=== PATIENT | male | born 1985 | race Caucasian/White ===

== ENCOUNTER → 2017-04-17 | Outpatient (CLI) | payer BC ==
[2017-04-17 09:09] LABS: BASOPHILS # (AUTO) 0.1 X10^3/uL (0.0-0.1); BASOPHILS % (AUTO) 1.1 % (0.2-1.0); EOSINOPHILS # (AUTO) 0.2 x10^3/uL (0.0-0.2); EOSINOPHILS % (AUTO) 2.3 % (0.9-2.9); HEMATOCRIT 42.5 % (42.0-54.0); HEMOGLOBIN 14.7 g/dL (13.5-18.0); LYMPHOCYTES # (AUTO) 2.2 X10^3/uL (1.3-2.9); LYMPHOCYTES % (AUTO) 30.7 % (21.0-51.0); MEAN CORPUSCULAR HEMOGLOBIN 30.5 pg (27.0-34.0); MEAN CORPUSCULAR HGB CONC 34.7 g/dL (33.0-35.0); MEAN CORPUSCULAR VOLUME 88.1 fL (80.0-100.0); MEAN PLATELET VOLUME 8.8 fL (7.4-11.0); MONOCYTES # (AUTO) 0.5 x10^3/uL (0.3-0.8); MONOCYTES % (AUTO) 6.4 % (0.0-13.0); NEUTROPHILS # (AUTO) 4.3 x10^3/uL (2.2-4.8); NEUTROPHILS % (AUTO) 59.5 % (42.0-75.0); PLATELET COUNT 297 X10^3/uL (150.0-450.0); RED BLOOD COUNT 4.82 X10^6/uL (4.7-6.0); RED CELL DISTRIBUTION WIDTH 12.8 % (11.6-16.5); WHITE BLOOD COUNT 7.2 X10^3/uL (3.6-10.0)
[2017-04-17 09:28] LABS: ALANINE AMINOTRANSFERASE 26 Units/L (12-78); ALBUMIN 3.7 g/dL (3.4-5.0); ALKALINE PHOSPHATASE 66 Units/L (46-116); ASPARTATE AMINO TRANSFERASE 29 Units/L (15-37); BLOOD UREA NITROGEN 28 mg/dL (7-18); CALCIUM 9.3 mg/dL (8.5-10.1); CARBON DIOXIDE 24.2 mmol/L (21-32); CHLORIDE 105 mmol/L (98-107); CHOL/HDL RATIO 7.8 (0.0-5.0); CHOLESTEROL 296 mg/dL (0-200); CREATININE 1.99 mg/dL (0.70-1.30); HDL CHOLESTEROL 38 mg/dL (40-60); SODIUM 140 mmol/L (136-145); TOTAL PROTEIN 7.9 g/dL (6.4-8.2); TRIGLYCERIDES 460 mg/dL (0-150); eGFR BLACK RACES 50 (>60); eGFR NON BLACK RACES 41 (>60)
== END ==
LOC: LAB 08:44
PROVIDERS: ATTEND Nurse Practitioner Family
DX: I10 Essential (primary) hypertension (principal); E78.4 Other hyperlipidemia
CPT/HCPCS: 36415; 80053; 80061; 85025

== ENCOUNTER → 2017-05-09 | Outpatient (CLI) | payer BC ==
[2017-05-09 16:26] LABS: ALANINE AMINOTRANSFERASE 24 Units/L (12-78); ALBUMIN 3.6 g/dL (3.4-5.0); ALKALINE PHOSPHATASE 61 Units/L (46-116); ASPARTATE AMINO TRANSFERASE 27 Units/L (15-37); BLOOD UREA NITROGEN 25 mg/dL (7-18); CARBON DIOXIDE 25.3 mmol/L (21-32); CHLORIDE 105 mmol/L (98-107); CREATININE 2.29 mg/dL (0.70-1.30); SODIUM 137 mmol/L (136-145); TOTAL PROTEIN 7.5 g/dL (6.4-8.2); eGFR BLACK RACES 43 (>60); eGFR NON BLACK RACES 35 (>60)
== END ==
LOC: LAB 16:00
PROVIDERS: ATTEND Nurse Practitioner Family
DX: R79.89 Other specified abnormal findings of blood chemistry (principal)
CPT/HCPCS: 36415; 80053

== ENCOUNTER → 2017-05-10 | Outpatient (CLI) | payer BC | LOC: LAB 08:51 | PROVIDERS: ATTEND Nurse Practitioner Family | DX: E87.5 Hyperkalemia (principal) | CPT/HCPCS: 36415; 84132 ==

== ENCOUNTER → 2017-05-11 | Outpatient (CLI) | payer BC | LOC: LAB 12:58 | PROVIDERS: ATTEND Nurse Practitioner Family | DX: E87.5 Hyperkalemia (principal) | CPT/HCPCS: 36415; 84132 ==

== ENCOUNTER 2017-05-12 11:38 | Observation (INO) | payer BC ==
[2017-05-12] MEDS: NS 1000 ML 1,000 ML IV SCH (14:00)
[2017-05-13] MEDS: NS 1000 ML 1,000 ML IV SCH (02:23)
[2017-05-13 04:31] VITALS: BMI 45.4
[2017-05-13 06:04] LABS: ALANINE AMINOTRANSFERASE 19 Units/L (12-78); ALKALINE PHOSPHATASE 44 Units/L (46-116); ASPARTATE AMINO TRANSFERASE 23 Units/L (15-37); BLOOD UREA NITROGEN 26 mg/dL (7-18); CALCIUM 8.4 mg/dL (8.5-10.1); CARBON DIOXIDE 25.4 mmol/L (21-32); CHLORIDE 105 mmol/L (98-107); COR CA(FOR HYPOALB) 9.2 mg/dL (8.5-10.1); CREATININE 1.69 mg/dL (0.70-1.30); SODIUM 139 mmol/L (136-145); TOTAL PROTEIN 6.4 g/dL (6.4-8.2); eGFR BLACK RACES 60 (>60); eGFR NON BLACK RACES 50 (>60)
[2017-05-13 06:10] LABS: BASOPHILS % (AUTO) 0.6 % (0.2-1.0); EOSINOPHILS # (AUTO) 0.2 x10^3/uL (0.0-0.2); EOSINOPHILS % (AUTO) 2.5 % (0.9-2.9); HEMATOCRIT 36.4 % (42.0-54.0); HEMOGLOBIN 12.5 g/dL (13.5-18.0); LYMPHOCYTES # (AUTO) 2.9 X10^3/uL (1.3-2.9); LYMPHOCYTES % (AUTO) 43.1 % (21.0-51.0); MEAN CORPUSCULAR HEMOGLOBIN 30.5 pg (27.0-34.0); MEAN CORPUSCULAR HGB CONC 34.2 g/dL (33.0-35.0); MEAN PLATELET VOLUME 9.6 fL (7.4-11.0); MONOCYTES # (AUTO) 0.4 x10^3/uL (0.3-0.8); MONOCYTES % (AUTO) 6.4 % (0.0-13.0); NEUTROPHILS # (AUTO) 3.2 x10^3/uL (2.2-4.8); NEUTROPHILS % (AUTO) 47.4 % (42.0-75.0); PLATELET COUNT 220 X10^3/uL (150.0-450.0); RED BLOOD COUNT 4.09 X10^6/uL (4.7-6.0); RED CELL DISTRIBUTION WIDTH 12.6 % (11.6-16.5); WHITE BLOOD COUNT 6.7 X10^3/uL (3.6-10.0)
--- NOTE | 2017-05-13 08:54 | US ---
History: Renal insufficiency Exam: Renal ultrasound Comparison: None Technique: Multiple grayscale and color flow Doppler images of the kidneys were obtained. Findings: The right kidney measures 13 x 6 x 7 cm. The left kidney measures 14 x 5.7 x 6 cm. Both kidneys are n ormal in echogenicity with no hydronephrosis, renal stone , or mass. The bladder is unremarkable. IMPRESSION: No abnormality seen. Reported By:
[2017-05-13 09:48] VITALS: BP 138/90
[2017-05-13] MEDS ORDERED: KLONOPIN TAB 1 MG PO SCH (11:00)
[2017-05-13] MEDS ORDERED: NORVASC TAB 10 MG PO SCH (11:00)
[2017-05-13] MEDS ORDERED: LOPRESSOR TAB 50 MG PO SCH (11:00)
--- NOTE | 2017-05-13 11:55 | DR.CARTERS ---
Short Stay Summary - Short Stay Summary for: Short Stay Summary for Date of:: 05/13/17 - Admission Date Date of Admission: 05/12/17 - Discharge Date Discharge Date: 05/13/17 - Admission Diagnoses (1) Hyperkalemia Status: Acute (2) Renal insufficiency Status: Acute - Hospital Course Hospital Course: is a 31 year old patient of Florina Morales. He is a direct admit for observation under our services due to hyperkalemia and renal insufficiency. Outpatient labs have been obtained since 05/09/2017. On 05/09/2017, potassium was noted to be 6.5, bun 25, creatinine 2.29. Patient was given Kayexalate PO. On the following day, potassium was noted to be 5.6. Patient was given an additional dose of Kayexalate. On 05/11/19, potassium was noted to be 5.7. Again , patient was given an additional dose of Kayexalate. On 05/12/2017, potassium was noted to be 5.5, bun 25, creatinine 1.76. Medical HX includes the following : HTN, Hyperlipidemia, Bronchitis, Pneumonia, Gerds, Anxiety, Depression. Due to sustained hyperkalemia, WILBERTO Rodriguez consulted with us for admission. We admitted patient for further treatment and evaluation. We planned to gently hydrate patient with Normal Saline at 80ml/hr and place on telemetry. We will follow up with AM labs and continue to monitor patient. On day two of stay, patient is alert and oriented, lying in bed on morning rounds. He denies complaints and reports feeling well. On examination, heart is regular in rate and rhythm. Bilateral lungs are clear to auscultation. Abdomen is round, soft, and non-tender with normal bowel sounds in all quadrants. There is normal range of motion to all extremities. His vitals this morning are 97.7- 64-18-94%-138/90. Labs were obtained. Abnormal lab values include the following : rbc 4.09, hgb 12.5, hct 36.4, bun 26, creatinine 1.69, calcium 8.4, total bili 0.10, alk phos 44, albumin 3.0. Patient reports chronic use of NSAIDS for back pain. We feel that this may be the cause of his hyperkalemia, as well as the use of Lisinopril. We encouraged patient to discontinue use of NSAIDS. We also discontinued lisinopril. We will recommend that patient be scheduled for an outpatient CTA of the renal arteries. We planned for discharge. Discharge instructions and medications discussed with patient. He verbalized understanding. Patient was discharged home in stable condition. He has instructions to follow up with Florina Hunt on 05/20/2016. - Discharge Medications Discharge Medications: Amlodipine Besylate 1 tab PO DAILY 05/12/17 [History] Clonazepam 1 mg PO TID 05/12/17 [History] Fluoxetine HCl [Prozac cap 40 mg] 1 cap PO DAILY 05/12/17 [History] Lamotrigine [Lamictal] 1 tab PO DAILY 05/12/17 [History] Metoprolol Tartrate [LOPRESSOR 50 MG *] 1 tab PO BID 05/12/17 [History] Misc Home Med [Patient's Home Medication] 1 tab PO DAILY 05/12/17 [History] - Discharge Plan Disposition: HOME, SELF-CARE Condition: Stable - Follow up/Referrals Follow up/Referrals: GERMAN HUNT [Nurse Practitioner] - 05/20/17 9:30 am - Instructions Instructions: Hyperkalemia, [id number], Form - Blood Pressure Record Sheet, Hypertension, [id number], Managing Your High Blood Pressure Additional Instructions: diet as tolerated. activity as tolerated. discontinue use of NSAIDs. Forms: Patient Portal
[2017-05-14] MEDS ORDERED: PROzac PO SCH (09:00)
[2017-05-14] MEDS ORDERED: LAMICTAL TAB 100 MG PO SCH (09:00)
[2017-05-14] MEDS ORDERED: TRICOR TAB 48 MG PO SCH (09:00)
== END 2017-05-13 11:10 | disposition home or self-care (01) ==
LOC: MED/SURG 11:38
PROVIDERS: ADMIT Internal Medicine; ATTEND Internal Medicine
DX: E87.5 Hyperkalemia (principal); N28.89 Other specified disorders of kidney and ureter; I10 Essential (primary) hypertension; R94.4 Abnormal results of kidney function studies; Z79.899 Other long term (current) drug therapy
CPT/HCPCS: 36415; 76770; 80053; 85025; A4222; G0378

== ENCOUNTER → 2017-05-12 | Outpatient (CLI) | payer BC ==
[2017-05-12 10:34] LABS: BASOPHILS % (AUTO) 0.9 % (0.2-1.0); EOSINOPHILS # (AUTO) 0.1 x10^3/uL (0.0-0.2); EOSINOPHILS % (AUTO) 2.1 % (0.9-2.9); HEMATOCRIT 40.5 % (42.0-54.0); LYMPHOCYTES # (AUTO) 1.8 X10^3/uL (1.3-2.9); LYMPHOCYTES % (AUTO) 33.6 % (21.0-51.0); MEAN CORPUSCULAR HEMOGLOBIN 30.5 pg (27.0-34.0); MEAN CORPUSCULAR HGB CONC 34.7 g/dL (33.0-35.0); MEAN CORPUSCULAR VOLUME 87.9 fL (80.0-100.0); MEAN PLATELET VOLUME 8.8 fL (7.4-11.0); MONOCYTES # (AUTO) 0.3 x10^3/uL (0.3-0.8); MONOCYTES % (AUTO) 5.7 % (0.0-13.0); NEUTROPHILS # (AUTO) 3.1 x10^3/uL (2.2-4.8); NEUTROPHILS % (AUTO) 57.7 % (42.0-75.0); PLATELET COUNT 260 X10^3/uL (150.0-450.0); RED BLOOD COUNT 4.61 X10^6/uL (4.7-6.0); RED CELL DISTRIBUTION WIDTH 12.8 % (11.6-16.5); WHITE BLOOD COUNT 5.4 X10^3/uL (3.6-10.0)
[2017-05-12 10:44] LABS: ALBUMIN 3.5 g/dL (3.4-5.0); BLOOD UREA NITROGEN 25 mg/dL (7-18); CALCIUM 9.2 mg/dL (8.5-10.1); CHLORIDE 104 mmol/L (98-107); CREATININE 1.76 mg/dL (0.70-1.30); PHOSPHORUS 2.8 mg/dL (2.6-4.7); SODIUM 138 mmol/L (136-145); eGFR BLACK RACES 58 (>60); eGFR NON BLACK RACES 48 (>60)
[2017-05-12 10:57] LABS: BILIRUBIN,URINE NEGATIVE (NEGATIVE); BLOOD/HEMOGLOBIN,URINE 1+ (NEGATIVE); GLUCOSE, URINE NEGATIVE (NEGATIVE); KETONES,URINE NEGATIVE (NEGATIVE); LEUKOCYTE ESTERASE ,URINE NEGATIVE (NEGATIVE); NITRITES,URINE NEGATIVE (NEGATIVE); PROTEIN,URINE 4+ (NEGATIVE); UROBILINOGEN,URINE NORMAL (NORMAL)
[2017-05-12 11:09] LABS: APPEARANCE,URINE CLEAR (CLEAR); COLOR,URINE YELLOW (YELLOW)
[2017-05-12 11:51] LABS: CREATININE,URINE 170.75 mg/dL (40-278)
[2017-05-12 12:24] LABS: MICROALBUM/CREATININE RATIO,UR 3995 mg/g cre (0-29)
[2017-05-12 12:34] LABS: RBC,URINE RARE /HPF (NEGATIVE); SQUAMOUS EPITHELIAL CELL,UR RARE /HPF (NEGATIVE)
[2017-05-12 12:35] LABS: AMORPHOUS SEDIMENT,UR TRACE /HPF (NEGATIVE); BACTERIA,URINE NEGATIVE /HPF (NEGATIVE); HYALINE CASTS, URINE FEW /LPF (NEGATIVE)
== END ==
LOC: LAB 10:02
PROVIDERS: ATTEND Nurse Practitioner Family
DX: E87.5 Hyperkalemia (principal)
CPT/HCPCS: 36415; 80048; 80069; 81001; 82043; 85025

== ENCOUNTER → 2017-06-11 | Outpatient (CLI) | payer BC ==
[2017-05-13 09:48] VITALS: BP 138/90
[2017-06-11 11:48] LABS: BASOPHILS # (AUTO) 0.1 X10^3/uL (0.0-0.1); BASOPHILS % (AUTO) 0.9 % (0.2-1.0); EOSINOPHILS # (AUTO) 0.1 x10^3/uL (0.0-0.2); EOSINOPHILS % (AUTO) 2.6 % (0.9-2.9); HEMOGLOBIN 13.8 g/dL (13.5-18.0); LYMPHOCYTES # (AUTO) 2.3 X10^3/uL (1.3-2.9); LYMPHOCYTES % (AUTO) 39.9 % (21.0-51.0); MEAN CORPUSCULAR HEMOGLOBIN 30.5 pg (27.0-34.0); MEAN CORPUSCULAR HGB CONC 34.5 g/dL (33.0-35.0); MEAN CORPUSCULAR VOLUME 88.3 fL (80.0-100.0); MEAN PLATELET VOLUME 8.5 fL (7.4-11.0); MONOCYTES # (AUTO) 0.5 x10^3/uL (0.3-0.8); MONOCYTES % (AUTO) 7.8 % (0.0-13.0); NEUTROPHILS # (AUTO) 2.8 x10^3/uL (2.2-4.8); NEUTROPHILS % (AUTO) 48.8 % (42.0-75.0); PLATELET COUNT 280 X10^3/uL (150.0-450.0); RED BLOOD COUNT 4.53 X10^6/uL (4.7-6.0); WHITE BLOOD COUNT 5.8 X10^3/uL (3.6-10.0)
[2017-06-11 11:57] LABS: HEMOGLOBIN A1C 5.3 %
[2017-06-11 11:58] LABS: ALANINE AMINOTRANSFERASE 17 Units/L (12-78); ALBUMIN 3.6 g/dL (3.4-5.0); ALKALINE PHOSPHATASE 68 Units/L (46-116); ASPARTATE AMINO TRANSFERASE 25 Units/L (15-37); BLOOD UREA NITROGEN 30 mg/dL (7-18); CALCIUM 8.9 mg/dL (8.5-10.1); CARBON DIOXIDE 26.9 mmol/L (21-32); CHLORIDE 105 mmol/L (98-107); CREATININE 2.05 mg/dL (0.70-1.30); SODIUM 138 mmol/L (136-145); TOTAL PROTEIN 7.4 g/dL (6.4-8.2); eGFR BLACK RACES 48 (>60); eGFR NON BLACK RACES 40 (>60)
--- NOTE | 2017-06-11 13:23 | RAD ---
Examination: Lumbar spine, AP and lateral views History: Back pain Findings: Normal alignment and no evidence for recent fracture, bone destruction. There is degenerati ve narrowing with endplate sclerosis and marginal osteophyte formation at L5-S1. Smaller osteophytes are noted at other levels. Pedicles and sacroiliac joints intact. Impression: No acute findings. Localized degenerative disc disease L5-S1. Reported By:
--- NOTE | 2017-06-11 13:25 | RAD ---
Examination: Thoracic spine, AP and lateral views History: Back pain Findings: The available AP image is underpenetrated and nondiagnostic. The lateral view does not incl ude extreme upper or lower vertebrae. What is seen, however is relatively normal except for small mar ginal osteophytes. There is no obvious fracture, bone destruction or paraspinal soft tissue mass. Impression: Grossly normal and intact. See above. Follow-up/repeat detailed views of localized sympto matic areas are recommended as clinically appropriate. Reported By:
== END ==
LOC: LAB 11:02
PROVIDERS: ATTEND Nurse Practitioner Family
DX: R35.8 Other polyuria (principal); Z83.3 Family history of diabetes mellitus; I10 Essential (primary) hypertension; M54.89 Other dorsalgia; M54.5 Low back pain
CPT/HCPCS: 36415; 72072; 72100; 80053; 83036; 84588; 85025

== ENCOUNTER → 2017-06-14 | Outpatient (CLI) | payer BC | LOC: LAB 11:44 | PROVIDERS: ATTEND Nurse Practitioner Family | DX: E87.5 Hyperkalemia (principal) | CPT/HCPCS: 36415; 84132 ==

== ENCOUNTER → 2017-06-17 | Outpatient (CLI) | payer BC | LOC: LAB 14:38 | PROVIDERS: ATTEND Nurse Practitioner Family | DX: E87.5 Hyperkalemia (principal) | CPT/HCPCS: 36415; 84132 ==

== ENCOUNTER → 2017-06-18 | Outpatient (CLI) | payer BC ==
[2017-06-18 14:58] LABS: TOTAL PROTEIN,URINE 178.1 mg/dl (0-11.9)
--- NOTE | 2017-06-19 08:01 | MRI ---
MRI lumbar spine without contrast Indication: Lower back pain Technique: Multisequence, multiplanar MR images of the lumbar spine were obtained without IV contrast . Comparison: Radiograph 06/11/2017 Findings: Vertebral body heights, alignment and marrow signal are normal. No acute fracture, subluxat ion or suspicious osseous lesion is identified. The conus terminates normally at L1. The cauda equina is unremarkable. Apart from a small left renal cyst, the imaged paraspinal soft tissues demonstrate no gross unexpected findings. T12-L1: Unremarkable L1-L2: Unremarkable L2-L3: Unremarkable L3-L4: Mild broad-based disc bulge and facet arthropathy without significant canal or foraminal steno sis. L4-L5: Mild broad-based disc bulge and facet arthropathy results in very mild bilateral foraminal samina rowing without significant canal stenosis. L5-S1: Moderate broad-based disc bulge and facet arthropathy results in mild canal and mild bilateral foraminal stenosis. Impression: Multilevel degenerative changes, most significant at L5-S1, as above. Reported By:
--- NOTE | 2017-06-19 13:29 | MRI ---
HISTORY: Back pain, dorsalgia Study: MRI thoracic spine without contrast Comparison: Thoracic radiographs performed on 06/11/2017 Technique: Multiplanar multi-sequence MRI of the thoracic spine was obtained. Sagittal T1, sagittal T2, and stir weighted images, axial T1, and axial T2 images were obtained. Findings: Imaging of the thoracic spine demonstrates normal vertebral alignment. There is no spondylolisthesis. Chronic very mild anterior wedging of the T9, T10, and T11 vertebral bodies is noted, resulting in m ild kyphosis at these levels. . No acute or early subacute compression fracture is visualized. There is mild reactive edema associated with degenerative endplate change anteriorly at the T10 and T11 lev els. Mild degenerative endplate changes with Schmorl's node formation are visualized within the mid a nd lower thoracic spine. There is no disc herniation or large disc bulge identified within the thorac ic spine. Multilevel disc ridging is evident. At the T9-T10 level and T10-T11 level there is broad-ba sed disc ridging and advanced facet hypertrophy, resulting in mild canal stenoses at these levels but no significant neuroforaminal compromise. Thoracic cord signal is normal throughout. Evaluation of t he pre and paravertebral soft tissues is not IMPRESSION: 1. Multilevel thoracic spondylosis and facet hypertrophy, most significant at the T9-T10 and T10-T11 levels, where there are mild canal stenoses. 2. Chronic very mild anterior wedging of the T9, T10, and T11 vertebral bodies resulting in short seg ment kyphosis . No acute or early subacute compression fracture. Reported By:
== END | disposition home or self-care (01) | DRG 696 ==
LOC: RAD 14:33
PROVIDERS: ATTEND Nurse Practitioner Family
DX: R80.8 Other proteinuria (principal); M54.89 Other dorsalgia; M51.24 Other intervertebral disc displacement, thoracic region; M51.26 Other intervertebral disc displacement, lumbar region; M51.27 Other intervertebral disc displacement, lumbosacral region; M47.894 Other spondylosis, thoracic region; M47.896 Other spondylosis, lumbar region; M47.897 Other spondylosis, lumbosacral region
CPT/HCPCS: 72146; 72148; 81050; 84157

== ENCOUNTER → 2017-06-26 | Outpatient (CLI) | payer BC ==
[2017-06-26 12:47] LABS: BASOPHILS # (AUTO) 0.1 X10^3/uL (0.0-0.1); BASOPHILS % (AUTO) 1.3 % (0.2-1.0); EOSINOPHILS # (AUTO) 0.1 x10^3/uL (0.0-0.2); EOSINOPHILS % (AUTO) 1.7 % (0.9-2.9); HEMATOCRIT 42.5 % (42.0-54.0); HEMOGLOBIN 14.8 g/dL (13.5-18.0); LYMPHOCYTES # (AUTO) 1.7 X10^3/uL (1.3-2.9); LYMPHOCYTES % (AUTO) 28.2 % (21.0-51.0); MEAN CORPUSCULAR HEMOGLOBIN 30.6 pg (27.0-34.0); MEAN CORPUSCULAR HGB CONC 34.8 g/dL (33.0-35.0); MEAN PLATELET VOLUME 8.6 fL (7.4-11.0); MONOCYTES # (AUTO) 0.5 x10^3/uL (0.3-0.8); MONOCYTES % (AUTO) 8.1 % (0.0-13.0); NEUTROPHILS # (AUTO) 3.6 x10^3/uL (2.2-4.8); NEUTROPHILS % (AUTO) 60.7 % (42.0-75.0); PLATELET COUNT 294 X10^3/uL (150.0-450.0); RED BLOOD COUNT 4.83 X10^6/uL (4.7-6.0); RED CELL DISTRIBUTION WIDTH 12.7 % (11.6-16.5)
[2017-06-26 12:47] LABS: BILIRUBIN,URINE NEGATIVE (NEGATIVE); BLOOD/HEMOGLOBIN,URINE 1+ (NEGATIVE); GLUCOSE, URINE NEGATIVE (NEGATIVE); KETONES,URINE NEGATIVE (NEGATIVE); LEUKOCYTE ESTERASE ,URINE NEGATIVE (NEGATIVE); NITRITES,URINE NEGATIVE (NEGATIVE); PROTEIN,URINE 3+ (NEGATIVE); UROBILINOGEN,URINE NORMAL (NORMAL)
[2017-06-26 12:54] LABS: ALBUMIN 3.6 g/dL (3.4-5.0); BLOOD UREA NITROGEN 39 mg/dL (7-18); CALCIUM 9.4 mg/dL (8.5-10.1); CARBON DIOXIDE 24.2 mmol/L (21-32); CHLORIDE 102 mmol/L (98-107); PHOSPHORUS 4.4 mg/dL (2.6-4.7); SODIUM 137 mmol/L (136-145); URIC ACID 7.4 mg/dL (3.5-7.2); eGFR BLACK RACES 40 (>60); eGFR NON BLACK RACES 33 (>60)
[2017-06-26 12:54] LABS: APPEARANCE,URINE CLEAR (CLEAR); BACTERIA,URINE NEGATIVE /HPF (NEGATIVE); COLOR,URINE YELLOW (YELLOW); CREATININE,URINE 195.38 mg/dL (40-278); HYALINE CASTS, URINE MANY /LPF (NEGATIVE); RBC,URINE 0-5 /HPF (NONE SEEN); SQUAMOUS EPITHELIAL CELL,UR RARE /HPF (NEGATIVE)
[2017-06-26 12:57] LABS: TOTAL PROTEIN,URINE 456.3 mg/dl (0-11.9)
== END ==
LOC: LAB 12:21
PROVIDERS: ATTEND Internal Medicine
DX: N18.3 Chronic kidney disease, stage 3 (moderate) (principal); N17.9 Acute kidney failure, unspecified; R79.82 Elevated C-reactive protein (CRP)
CPT/HCPCS: 36415; 80069; 81001; 82570; 83516; 83883; 84157; 84550; 85025; 86021; 86140; 86308

== ENCOUNTER → 2017-07-18 | Outpatient (CLI) | payer BC ==
[2017-07-18 11:53] LABS: BASOPHILS # (AUTO) 0.1 X10^3/uL (0.0-0.1); BASOPHILS % (AUTO) 1.1 % (0.2-1.0); EOSINOPHILS # (AUTO) 0.2 x10^3/uL (0.0-0.2); EOSINOPHILS % (AUTO) 2.9 % (0.9-2.9); HEMATOCRIT 41.9 % (42.0-54.0); HEMOGLOBIN 14.4 g/dL (13.5-18.0); LYMPHOCYTES # (AUTO) 1.6 X10^3/uL (1.3-2.9); LYMPHOCYTES % (AUTO) 28.9 % (21.0-51.0); MEAN CORPUSCULAR HEMOGLOBIN 30.2 pg (27.0-34.0); MEAN CORPUSCULAR HGB CONC 34.4 g/dL (33.0-35.0); MEAN CORPUSCULAR VOLUME 87.7 fL (80.0-100.0); MEAN PLATELET VOLUME 8.5 fL (7.4-11.0); MONOCYTES # (AUTO) 0.4 x10^3/uL (0.3-0.8); MONOCYTES % (AUTO) 6.7 % (0.0-13.0); NEUTROPHILS # (AUTO) 3.3 x10^3/uL (2.2-4.8); NEUTROPHILS % (AUTO) 60.4 % (42.0-75.0); PLATELET COUNT 306 X10^3/uL (150.0-450.0); RED BLOOD COUNT 4.78 X10^6/uL (4.7-6.0); RED CELL DISTRIBUTION WIDTH 12.2 % (11.6-16.5); WHITE BLOOD COUNT 5.5 X10^3/uL (3.6-10.0)
[2017-07-18 12:17] LABS: ALBUMIN 3.9 g/dL (3.4-5.0); BLOOD UREA NITROGEN 46 mg/dL (7-18); CALCIUM 8.9 mg/dL (8.5-10.1); CARBON DIOXIDE 22.4 mmol/L (21-32); CHLORIDE 104 mmol/L (98-107); CREATININE 2.91 mg/dL (0.70-1.30); PHOSPHORUS 3.8 mg/dL (2.6-4.7); SODIUM 137 mmol/L (136-145); URIC ACID 7.7 mg/dL (3.5-7.2); eGFR BLACK RACES 32 (>60); eGFR NON BLACK RACES 27 (>60)
== END ==
LOC: LAB 11:36
PROVIDERS: ATTEND Internal Medicine
DX: I12.9 Hypertensive chronic kidney disease with stage 1 through stage 4 chronic kidney disease, or unspecified chronic kidney disease (principal); N18.3 Chronic kidney disease, stage 3 (moderate)
CPT/HCPCS: 36415; 80069; 84550; 85025

== ENCOUNTER → 2017-08-12 | Outpatient (CLI) | payer BC ==
[2017-08-12 11:27] LABS: BASOPHILS # (AUTO) 0.1 X10^3/uL (0.0-0.1); BASOPHILS % (AUTO) 0.3 % (0.2-1.0); HEMATOCRIT 43.6 % (42.0-54.0); HEMOGLOBIN 14.7 g/dL (13.5-18.0); LYMPHOCYTES # (AUTO) 0.8 X10^3/uL (1.3-2.9); LYMPHOCYTES % (AUTO) 4.4 % (21.0-51.0); MEAN CORPUSCULAR HEMOGLOBIN 29.8 pg (27.0-34.0); MEAN CORPUSCULAR HGB CONC 33.8 g/dL (33.0-35.0); MEAN CORPUSCULAR VOLUME 88.1 fL (80.0-100.0); MONOCYTES # (AUTO) 0.6 x10^3/uL (0.3-0.8); MONOCYTES % (AUTO) 3.7 % (0.0-13.0); NEUTROPHILS # (AUTO) 15.8 x10^3/uL (2.2-4.8); NEUTROPHILS % (AUTO) 91.6 % (42.0-75.0); PLATELET COUNT 331 X10^3/uL (150.0-450.0); RED BLOOD COUNT 4.95 X10^6/uL (4.7-6.0); RED CELL DISTRIBUTION WIDTH 12.3 % (11.6-16.5); WHITE BLOOD COUNT 17.3 X10^3/uL (3.6-10.0)
[2017-08-12 11:34] LABS: ALBUMIN 3.3 g/dL (3.4-5.0); CALCIUM 8.8 mg/dL (8.5-10.1); COR CA(FOR HYPOALB) 9.4 mg/dL (8.5-10.1); CREATININE 1.88 mg/dL (0.70-1.30); PHOSPHORUS 4.9 mg/dL (2.6-4.7)
[2017-08-12 11:45] LABS: CREATININE,URINE 141.59 mg/dL (40-278)
[2017-08-12 11:57] LABS: BAND NEUTROPHILS % 5 % (0-10)
[2017-08-12 11:58] LABS: PLATELET MORPHOLOGY COMMENT NORMAL (NORMAL)
[2017-08-12 12:01] LABS: TOTAL PROTEIN,URINE 571.2 mg/dl (0-11.9)
== END ==
LOC: LAB 11:04
PROVIDERS: ATTEND Internal Medicine
DX: R80.8 Other proteinuria (principal); N18.3 Chronic kidney disease, stage 3 (moderate)
CPT/HCPCS: 36415; 80069; 82570; 84157; 84550; 85025

== ENCOUNTER → 2017-09-10 | Outpatient (CLI) | payer BC ==
[2017-09-10 14:12] LABS: BASOPHILS % (AUTO) 0.2 % (0.2-1.0); HEMATOCRIT 42.8 % (42.0-54.0); HEMOGLOBIN 14.7 g/dL (13.5-18.0); LYMPHOCYTES # (AUTO) 0.5 X10^3/uL (1.3-2.9); LYMPHOCYTES % (AUTO) 5.1 % (21.0-51.0); MEAN CORPUSCULAR HEMOGLOBIN 30.1 pg (27.0-34.0); MEAN CORPUSCULAR HGB CONC 34.3 g/dL (33.0-35.0); MEAN CORPUSCULAR VOLUME 87.9 fL (80.0-100.0); MEAN PLATELET VOLUME 7.9 fL (7.4-11.0); MONOCYTES # (AUTO) 0.6 x10^3/uL (0.3-0.8); MONOCYTES % (AUTO) 5.5 % (0.0-13.0); NEUTROPHILS % (AUTO) 89.2 % (42.0-75.0); PLATELET COUNT 221 X10^3/uL (150.0-450.0); RED BLOOD COUNT 4.87 X10^6/uL (4.7-6.0); WHITE BLOOD COUNT 10.1 X10^3/uL (3.6-10.0)
[2017-09-10 14:19] LABS: ALBUMIN 3.2 g/dL (3.4-5.0); BLOOD UREA NITROGEN 35 mg/dL (7-18); CALCIUM 8.7 mg/dL (8.5-10.1); CHLORIDE 103 mmol/L (98-107); COR CA(FOR HYPOALB) 9.3 mg/dL (8.5-10.1); CREATININE 1.65 mg/dL (0.70-1.30); PHOSPHORUS 3.9 mg/dL (2.6-4.7); SODIUM 137 mmol/L (136-145); URIC ACID 5.3 mg/dL (3.5-7.2); eGFR BLACK RACES > 60 (>60); eGFR NON BLACK RACES 51 (>60)
[2017-09-10 14:25] LABS: TOTAL PROTEIN,URINE 435.1 mg/dl (0-11.9)
[2017-09-10 14:33] LABS: BAND NEUTROPHILS % 6 % (0-10); METAMYELOCYTES % 3; MYELOCYTES % 1; PLATELET MORPHOLOGY COMMENT NORMAL (NORMAL)
[2017-09-10 14:38] LABS: CREATININE,URINE 109.85 mg/dL (30-125)
== END ==
LOC: LAB 13:43
PROVIDERS: ATTEND Internal Medicine
DX: R80.8 Other proteinuria (principal); N18.3 Chronic kidney disease, stage 3 (moderate)
CPT/HCPCS: 36415; 80069; 82570; 84157; 84550; 85025